=== PATIENT | male | born 1950 | race Two or more races ===

== ENCOUNTER 2019-09-08 13:35 | Outpatient (CLI) | payer MEDICARE, BC ==
[~2019-09-08] VITALS: Ht 172.7 cm; Wt 82.6 kg
[2019-09-08 14:00] VITALS: BP 139/79
--- NOTE | 2019-09-08 20:45 | Consultation ---
DATE OF CONSULTATION: 09/08/2019 GASTROENTEROLOGY CONSULTATION CONSULTING PHYSICIAN: Sam Coles M.D. CHIEF COMPLAINT: Needs for screening colonoscopy, chronic GERD, chronic constipation. HISTORY OF PRESENT ILLNESS: This is a very pleasant 68-year-old male, patient of was referred to us for evaluation of above complaints. PAST MEDICAL HISTORY: 1. Chronic GERD. 2. History of kidney stones. 3. Depression. 4. Degenerative disease of the spine, on chronic pain medication. 5. Atrial fibrillation, on Eliquis. MEDICATIONS: Please see medication reconciliation list. PAST SURGICAL HISTORY: The patient has history of cardioversion and multiple cosmetic surgeries. FAMILY HISTORY: No family history of GI malignancies. SOCIAL HISTORY: The patient denies any tobacco, alcohol, or drug abuse. ALLERGIES: No known drug allergies. REVIEW OF SYSTEMS: Positive for left lower quadrant abdominal pain, chronic GERD, bloating. PHYSICAL EXAMINATION: VITAL SIGNS: Temperature 98.1, blood pressure is 129/74, pulse 64, respirations 20. HEENT: Normocephalic and atraumatic. Scleral anicteric. NECK: Supple. No evidence of obvious lymphadenopathy. CARDIOVASCULAR: Regular rate and rhythm. Plus S1 and S2. No obvious murmurs. LUNGS: Clear to auscultation bilaterally. ABDOMEN: Positive bowel sounds. Soft and nontender. No rebound. No guarding. No peritoneal sign. EXTREMITIES: No cyanosis. No clubbing. No edema. ASSESSMENT AND PLAN: This is a 68-year-old male with complaint of chronic constipation, most likely from narcotics, currently on Amitiza; left lower quadrant abdominal pain; chronic GERD; need for screening colonoscopy. Plan to perform EGD and colonoscopy. The patient was informed of the risks and benefits of procedure and prep was given to him with instruction. The patient was told to stop Eliquis two days prior to the procedure, scheduled for 09/26/2019. I want to thank, , also for this kind referral. Sam Coles M.D. DR: MOHAN JOB#: [id number] CC:
[2019-09-09] MEDS ORDERED: MYRBETRIQ50 MG PO (08:55)
[2019-09-09] MEDS ORDERED: AMITIZA24 MCG ORAL (08:55)
[2019-09-09] MEDS ORDERED: OMEPRAZOLE40 M1 ORAL (08:55)
[2019-09-09] MEDS ORDERED: NORCO 10-325 T1 EACH ORAL (08:55)
[2019-09-09] MEDS ORDERED: INCRUSE ELLI62.5 MCG IH (08:55)
[2019-09-09] MEDS ORDERED: ARNUITY ELLIP200 MCG IH (08:55)
[2019-09-09] MEDS ORDERED: RANOLAZINE ER500 MG PO (08:55)
[2019-09-09] MEDS ORDERED: CIALIS5 MG PO (08:55)
[2019-09-09] MEDS ORDERED: ELIQUIS5 MG PO (08:55)
== END 2019-09-08 15:35 | disposition home or self-care (01) ==
LOC: PAN 13:35
DX: K21.9 Gastro-esophageal reflux disease without esophagitis (principal); K59.09 Other constipation; Z87.442 Personal history of urinary calculi; F32.9 Major depressive disorder, single episode, unspecified; M19.90 Unspecified osteoarthritis, unspecified site; I48.91 Unspecified atrial fibrillation; Z79.01 Long term (current) use of anticoagulants
CPT/HCPCS: G0463

== ENCOUNTER 2019-09-26 09:04 | Day surgery (SDC) | payer MEDICARE, BC ==
[~2019-09-26] VITALS: Ht 172.7 cm; Wt 77.1 kg
[2019-09-26] VITALS (7 sets, daily range): BP systolic 131–159; BP diastolic 73–82
--- NOTE | 2019-09-26 08:57 | Anethesia Preoperative Eval ---
Anesthesia Pre-op PMH/ROS General Date of Evaluation: Sep 26, 2019 Time of Evaluation: 08:54 Anesthesiologist: candelaria ASA Score: ASA 3 Mallampati Score Class I : Soft palate, uvula, fauces, pillars visible Class II: Soft palate, uvula, fauces visible Class III: Soft palate, base of uvula visible Class IV: Only hard plate visible Mallampati Classification: Class II Surgeon: jefry Diagnosis: gerd, colon screening Surgical Procedure: egd, colonoscopy Anesthesia History: none Social History: current smoker Family History: no anesthesia problems Allergies: Coded Allergies: No Known Allergies (Unverified , 09/09/19) Medications: see eMAR Patient NPO?: Yes Past Medical History Cardiovascular: Reports: HTN, arrhythmia - atrial fibrillation, angina Pulmonary: Reports: asthma Gastrointestinal/Genitourinary: Reports: GERD, other - kidney stones Hematology/Immune: Reports: other - anticoagulation therapy Musculoskeletal/Integumentary: Reports: DDD Anesthesia Pre-op Phys. Exam Physician Exam Last Vital Signs Date Time Temp Pulse Resp B/P (MAP) Pulse Ox O2 Delivery O2 Flow Rate FiO2 09/26/19 09:49 Room Air 09/26/19 09:46 98.6 66 20 131/73 97 Constitutional: NAD Neurologic: CN 2-12 intact Cardiovascular: RRR Respiratory: CTA Gastrointestinal: S/NT/ND Airway Exam Mallampati Score: Class II MO: limited Neck: flexible TMD: 2fb ROM: limited Anesthesia Pre-op A/P Risk Assessment & Plan Assessment: asa3 Plan: mac Status Change Before Surgery: No Pre-Antibiotics Drug: Greta Garcia MD Sep 26, 2019 08:56
[~2019-09-26 09:04] MED LIST: AMITIZA24 MCG ORAL; ARNUITY ELLIP200 MCG IH; Atropine Inj 1mg/10ml Syr IV PRN; CIALIS5 MG PO; DiphenhydrAMINE 50mg/ml Inj IVP PRN; ELIQUIS5 MG PO; INCRUSE ELLI62.5 MCG IH; LR 1000ml 1,000 ML IVLG SCH; MYRBETRIQ50 MG PO; Midazolam 2mg/2ml Inj IVP PRN; NORCO 10-325 T1 EACH ORAL; OMEPRAZOLE40 M1 ORAL; RANOLAZINE ER500 MG PO; fentaNYL 100 mcg/2 mL IV PRN
--- NOTE | 2019-09-26 10:16 | Pre-Procedure Note/Attestation ---
Pre-Procedure Note/Attestation Complete Prior to Procedure Planned Procedure: not applicable Procedure Narrative: esophagogastroduodenoscopy and colonoscopy Indications for Procedure Pre-Operative Diagnosis: screening colon, GERD Attestation I attest that I discussed the nature of the procedure; its benefits; risks and complications; and alternatives (and the risks and benefits of such alternatives ), prior to the procedure, with the patient (or the patient's legal passenger representative). I attest that, if there was a reasonable possibility of needing a blood transfusion, the patient (or the patient's legal passenger representative) was given the [facility] standardized written summary, pursuant to the [place] Blood Safety Act ([place] Health and Safety Code # 1645, as amended). I attest that I re-evaluated the patient just prior to the surgery and that there has been no change in the patient's H&P, except as documented below: Sam Coles MD Sep 26, 2019 10:16
--- NOTE | 2019-09-26 10:17 | Short Stay Surgery H&P ---
History of Present Illness History of Present Illness Chief Complaint see office consult note HPI Con Dover is a 68 year old male who was admitted on for Gerd And Screening Patient History Allergies: Coded Allergies: No Known Allergies (Unverified , 09/09/19) Medication History Scheduled Apixaban (Eliquis), 5 MG PO BID, (Reported) Fluticasone Furoate (Arnuity Ellipta), 200 MCG IH DAILY, (Reported) Lubiprostone (Amitiza*), 24 MCG ORAL EVERY 12 HOURS, (Reported) Mirabegron (Myrbetriq), Unknown Dose PO DAILY, (Reported) Omeprazole (Omeprazole), 40 MG ORAL DAILY, (Reported) Tadalafil (Cialis), 5 MG PO DAILY, (Reported) Umeclidinium [place] (Incruse Ellipta), 62.5 MCG IH DAILY, (Reported) Scheduled PRN Hydrocodone Bit/Acetaminophen 10-325* ([place] 10-325*), 1 TAB ORAL Q6H PRN for For Pain, (Reported) Discontinued Medications Ranolazine (Ranolazine ER), 500 MG PO DAILY, (Reported) Discontinued Reason: MD discontinued med Physical Exam Vital Signs Last Vital Signs Date Time Temp Pulse Resp B/P (MAP) Pulse Ox O2 Delivery O2 Flow Rate FiO2 09/26/19 09:49 Room Air 09/26/19 09:46 98.6 66 20 131/73 97 Plan Attestation Are the patient's medical conditions optimized for surgery? Sam Coles MD Sep 26, 2019 10:17
[2019-09-26] MEDS ORDERED: Atropine Sulfate 0.4mg/ml inj 20ML ONE (10:33)
[2019-09-26] MEDS ORDERED: Lidocaine 1% MPF 10mg/ml 5ml ONE (10:33)
[2019-09-26] MEDS ORDERED: Propofol 200mg/20ml IV ONE (10:33)
[2019-09-26] MEDS ORDERED: LR 1000ml ONE (10:33)
--- NOTE | 2019-09-26 11:28 | Endoscopy Procedure Note ---
Endoscopy Procedure Note General Indication for Procedure: screening Procedures Performed: colonoscopy Operative Findings/Diagnosis: 2 polyps Specimen: yes Pt Tolerated Procedure Well: Yes Estimated Blood Loss: none Anesthesia Anesthesiologist: mackenzie Anesthesia: MAC Inserted Devices Implant(s) used?: No Quality Quality of Bowel Preparation: Good Did scope reach the cecum?: Yes Was there any complications?: No GI Core Measures 50 yrs or older w/o bx or poly: No 10yrs. F/U recommended: Yes If not recommended, why?: Above average risk 18 years or older w/prev. colo: No Sam Coles MD Sep 26, 2019 11:28
--- NOTE | 2019-09-26 11:45 | Immediate Post-Op Evaluation ---
Immediate Post-Op Evalulation Immediate Post-Op Evalulation Procedure: egd/colonoscopy w/bx Date of Evaluation: Sep 26, 2019 Time of Evaluation: 11:44 IV Fluids: 350ml lr Blood Products: none Estimated Blood Loss: negligible Blood Pressure Systolic: 139 Blood Pressure Diastolic: 81 Pulse Rate: 59 Respiratory Rate: 18 O2 Sat by Pulse Oximetry: 100 Temperature (Fahrenheit): 98.0 Pain Score (1-10): 0 Nausea: No Vomiting: No Complications none Patient Status: awake, reacts, patent Hydration Status: adequate Drug: Greta Garcia MD Sep 26, 2019 11:45
--- NOTE | 2019-09-26 11:46 | 48 Hour Post Anesthesia Eval ---
Post Anesthesia Evaluation Procedure: egd/colonoscopy w/bx Date of Evaluation: Sep 26, 2019 Time of Evaluation: 11:46 Blood Pressure Systolic: 151 0: 82 Pulse Rate: 55 Respiratory Rate: 18 Temperature (Fahrenheit): 98.0 O2 Sat by Pulse Oximetry: 100 Airway: patent Nausea: No Vomiting: No Pain Intensity: 0 Hydration Status: adequate Cardiopulmonary Status: stable Mental Status/LOC: patient returned to baseline Post-Anesthesia Complications: none Follow-up care needed: N/A Greta Mena MD Sep 26, 2019 11:46
--- NOTE | 2019-09-26 17:30 | Procedure Note ---
DATE OF PROCEDURE: 09/26/2019 SURGEON: Sam Coles M.D. PROCEDURE: Colonoscopy with snare polypectomy. ANESTHESIA: Per Dr. Oh. INSTRUMENT: Olympus adult flexible colonoscope. INDICATIONS: Screening colonoscopy. The procedure, risks, benefits, and possible consequences, including hemorrhage, aspiration, perforation and infection, and alternative treatments, were explained to the patient/legal guardian by Dr. Sam Coles and the patient/legal guardian understood and accepted these risks. PROCEDURE IN DETAIL: After informed consent was obtained and the patient was adequately sedated, first rectal exam was performed, which was positive for internal hemorrhoids. Then, the scope was advanced from the rectum into the cecum documented by the appendix orifice, ileocecal valve, and right upper quadrant palpation. Quality of prep was good. The patient had two polyps sessile, both in the transverse colon, measured less than 1 cm each, and removed with hot snare polypectomy technique. The rest of the examination grossly looked within normal limits. Retroflexion of rectum showed evidence of large internal hemorrhoids. SUMMARY OF FINDINGS: 1. Two colonic polyps removed, see above for details. 2. Internal hemorrhoids. RECOMMENDATIONS: Follow up pathology. Recommend repeat colonoscopy in 5 years. I want to thank Filippo for this kind referral. Sam Coles M.D. DR: Lisa JOB#: [id number] CC: Dr. Barkley
--- NOTE | 2019-10-02 17:00 | Cardiology Report ---
APPROVED REPORT EKG Measurement Heart [id number] Sinus bradycardia Otherwise normal ECG
== END 2019-09-26 12:40 | disposition home or self-care (01) ==
LOC: GAS 09:04
DX: Z12.11 Encounter for screening for malignant neoplasm of colon (principal); K63.5 Polyp of colon; K21.9 Gastro-esophageal reflux disease without esophagitis; K64.8 Other hemorrhoids; Z79.899 Other long term (current) drug therapy
CPT/HCPCS: 93005; 94003; 94150

== ENCOUNTER 2019-10-13 12:45 | Outpatient (CLI) | payer MEDICARE, BC ==
[~2019-10-13 12:45] MED LIST changes: -Atropine Inj 1mg/10ml Syr IV PRN; -DiphenhydrAMINE 50mg/ml Inj IVP PRN; -LR 1000ml 1,000 ML IVLG SCH; -Midazolam 2mg/2ml Inj IVP PRN; -fentaNYL 100 mcg/2 mL IV PRN
[2019-10-13 13:08] VITALS: BP 140/72
--- NOTE | 2019-10-13 13:35 | General Progress Note ---
Assessment/Plan Assessment/Plan: SUMMARY OF FINDINGS: 1. Two colonic polyps removed, see above for details. 2. Internal hemorrhoids. RECOMMENDATIONS: Recommend repeat colonoscopy in 5 years. Subjective ROS Limited/Unobtainable: Yes Allergies: Coded Allergies: No Known Allergies (Unverified , 09/09/19) Objective General Appearance: alert EENT: normal ENT inspection Neck: supple Cardiovascular: normal rate Respiratory/Chest: decreased breath sounds Abdomen: normal bowel sounds, non tender, soft Extremities: non-tender Sam Coles MD Oct 13, 2019 13:34
== END 2019-10-13 14:45 | disposition home or self-care (01) ==
LOC: PAN 12:45
DX: K63.5 Polyp of colon (principal); K64.8 Other hemorrhoids